=== PATIENT | female | born 1960 | race Caucasian/White ===

== ENCOUNTER 2016-10-16 21:36 | Emergency (ER) | payer OTHER ==
[~2016-10-16 21:36] MED LIST: ACETAMINOPHEN PO; ASPIRIN PO; ASPIRIN81 MG PO; BP MED; CELEXA PO; COMPAZINE10 M1 PO; COUMADIN PO; CYMBALTA PO; DURAGESIC TOP; DURAGESIC75 MCG EXT; FLEXERIL PO; FLUOROMETHOLONE15 ML OP; IMITREX PO; KEPPRA750 MG PO; KLONOPIN PO; KLONOPIN1 MG PO; LOMOTIL TABLET1 TAB PO; LOMOTIL WHITE2.5 MG DOB; LOMOTIL WHITE2.5 MG PO; LORTAB 10/500 T1 TAB PO; MARINOL10 MG; MARINOL2.5 MG PO; MOTRIN600 MG PO; NEURONTIN; NEXIUM PO; NICOTINE T1 PATCH .2 TOP; NICOTINE TRANSD21 MG EXT; OXYCODONE H5 MG/5 ML; OXYCODONE HCL10 MG PO; PANTOPRAZOLE SO40 MG PO; PAROXETINE HCL20 M1 PO; PAXIL PO; PERCOCET PO; PHENERGAN PO; PHENERGAN12.5 MG PO; PHENERGAN25 MG PO; PREDNISONE; PROTONIX PO; PYRIDIUM; ULTRAM PO; WARFARIN SODIUM10 MG PO; WELCHOL625 MG PO; XANAX1 MG PO; ZITHROMAX PO; ZOVIRAX200 M1 PO; [UNRECOGNIZED DRUG - OTHER]; [UNRECOGNIZED DRUG - OTHER] OT; [UNRECOGNIZED DRUG - REMARK]
== END 2016-10-16 21:46 | disposition left against medical advice (07) ==
LOC: SED 21:36
DX: R51 Headache (principal); F32.9 Major depressive disorder, single episode, unspecified; F17.210 Nicotine dependence, cigarettes, uncomplicated; Z79.899 Other long term (current) drug therapy; Z88.8 Allergy status to other drugs, medicaments and biological substances; Z88.0 Allergy status to penicillin; Z88.1 Allergy status to other antibiotic agents; Z88.2 Allergy status to sulfonamides; Z88.6 Allergy status to analgesic agent
CPT/HCPCS: 99282; J1200; J2765